=== PATIENT | male | born 1950 | race Caucasian/White ===

== ENCOUNTER 2018-05-05 19:45 | Emergency (ER) | payer MEDICARE ==
[2018-05-05 20:17] LABS: #Eosinphils 0.5 thou/uL (0.0-0.7); #Lymphocytes 1.5 thou/uL (1.20-3.40); #Monocytes 0.6 thou/uL (0.11-0.59); #Neutrophils 4.2 thou/uL (1.40-6.50); %Basophils 0.5 % (0.0-1.0); %Eosinophils 7.4 % (0.0-10.0); %Lymphocytes 21.8 % (21.0-51.0); %Monocytes 8.9 % (0.0-10.0); %Neutrophils 61.3 % (42.0-75.0); Hemoglobin 12.1 g/dL (14.0-18.0); Mean Corpuscular Hemoglobin 34.1 pg (27.0-31.0); Mean Corpuscular Volume 94.7 fl (80.0-94.0); Mean Platelet Volume 5.4 fL (7.4-10.4); Platelet Count 337 thou/uL (130-400); RBC Distribution Width 12.4 % (11.5-14.5); Red Blood Cell (RBC) Count 3.56 mill/uL (4.70-6.10); White Blood Cell (WBC) Count 6.8 thou/uL (4.8-10.8)
[2018-05-05 20:37] LABS: ALT (SGPT) 9 U/L (8-55); AST (SGOT) 15 U/L (5-34); Albumin 4.3 g/dL (3.4-4.8); Alkaline Phosphatase 82 U/L (40-150); Anion Gap 13 mmol/L (10-20); BUN (Urea Nitrogen) 10 mg/dL (8.4-25.7); Bilirubin, Total 0.4 mg/dL (0.2-1.2); CRP (Inflammatory) 0.74 mg/dL (= or < 0.5); Calc. Creatinine Clearance 0 mL/min (70-130); Calcium 10.1 mg/dL (7.8-10.44); Carbon Dioxide 24 mmol/L (23-31); Chloride 100 mmol/L (98-107); Estimated GFR-MDRD 63; Globulin 2.8 g/dL (2.4-3.5); Glucose 97 mg/dL (80-115); Potassium 3.9 mmol/L (3.5-5.1); Protein, Total 7.1 g/dL (5.8-8.1); Sodium 133 mmol/L (136-145)
--- NOTE | 2018-05-05 21:37 | RAD ---
LEFT KNEE 05/05/18 Four views. HISTORY: Knee pain. Patient has a left BK amputation. 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 No focal lytic or destructive lesion. No evidence of fracture. There is abnormal thickening of the prepatellar soft tissues which could represent edema or infection . IMPRESSION: 1. Abnormal mottled density of the bones which may represent disuse osteoporosis, although an in filtrative process cannot be excluded. There is no evidence of focal lytic or destructive process. 2. Abnormal thickening of the prepatellar soft tissues. Recommend clinical correlation. POS: [facility]
== END 2018-05-05 22:05 | disposition home or self-care (01) ==
LOC: ERS 19:45
DX: L03.116 Cellulitis of left lower limb (principal); K21.9 Gastro-esophageal reflux disease without esophagitis; I10 Essential (primary) hypertension; Z86.73 Personal history of transient ischemic attack (TIA), and cerebral infarction without residual deficits; F17.210 Nicotine dependence, cigarettes, uncomplicated; Z79.899 Other long term (current) drug therapy; Z79.82 Long term (current) use of aspirin
CPT/HCPCS: 36415; 80053; 85025; 85652; 86140

== ENCOUNTER 2020-04-20 19:56 | Emergency (ER) | payer MEDICARE ==
--- NOTE | 2020-04-20 21:23 | RAD ---
2 views left hip: 04/20/2020 COMPARISON: None HISTORY: Hip, back, and flank pain FINDINGS: No fracture or dislocation. No radiopaque foreign body or subcutaneous gas. IMPRESSION: No acute findings.
--- NOTE | 2020-04-20 21:25 | RAD ---
3 views lumbar spine: 04/20/2020 COMPARISON: None HISTORY: Pain FINDINGS: There is extensive atherosclerotic calcification of the abdominal aorta and the arterial st ructures of the pelvis. A nonspecific 1.1 cm calcification overlies the mid right abdomen, likely on the basis of a right intrarenal stone. Lumbar pedicles appear intact on frontal imaging. Multilevel lower lumbar spine facet hypertrophy not ed. No acute fracture is evident. No anterolisthesis or retrolisthesis. Lateral imaging is slightly limited on the basis of rotation and obliquity. IMPRESSION: No acute osseous abnormality. Incidental findings as above.
[2020-04-20] MEDS ORDERED: Cyclobenzaprine 10 MG TAB ONE (21:37)
[2020-04-20] MEDS ORDERED: Lidocaine 4% Cream 5 GM TUBE w/ Tegaderm ONE (21:37)
[2020-04-20] MEDS ORDERED: Lidocaine 5% Patch TD SCH (21:45)
[2020-04-20 22:14] LABS: Bilirubin Negative (Negative); Blood, Urine Negative (Negative); Clarity Clear (Clear); Glucose, Urine (Dipstick) Normal (Negative); Leukocyte Negative Leu/uL (Negative); Nitrite Negative (Negative); Protein, Urine (Dipstick) Negative (Neg-Trace); Urobilinogen Normal mg/dL (Less than 2)
== END 2020-04-20 22:21 | disposition home or self-care (01) ==
LOC: ERS 19:56
DX: M25.552 Pain in left hip (principal); J44.9 Chronic obstructive pulmonary disease, unspecified; I10 Essential (primary) hypertension; F17.210 Nicotine dependence, cigarettes, uncomplicated; Z79.899 Other long term (current) drug therapy; Z86.73 Personal history of transient ischemic attack (TIA), and cerebral infarction without residual deficits; Z79.82 Long term (current) use of aspirin; Z89.512 Acquired absence of left leg below knee
CPT/HCPCS: 72100; 81003

== ENCOUNTER 2020-07-17 16:31 | Emergency (ER) | payer MEDICARE ==
[2020-07-17 17:28] LABS: #Eosinphils 0.1 thou/uL (0.0-0.7); #Lymphocytes 1.3 thou/uL (1.20-3.40); #Monocytes 0.4 thou/uL (0.11-0.59); #Neutrophils 5.2 thou/uL (1.40-6.50); %Basophils 0.4 % (0.0-1.0); %Eosinophils 0.9 % (0.0-10.0); %Lymphocytes 18.3 % (21.0-51.0); %Monocytes 5.2 % (0.0-10.0); %Neutrophils 75.1 % (42.0-75.0); Hemoglobin 10.7 g/dL (14.0-18.0); Mean Corpuscular HGB CONC 33.9 g/dL (32.0-36.0); Mean Corpuscular Hemoglobin 31.1 pg (27.0-31.0); Mean Corpuscular Volume 91.8 fL (78.0-98.0); Mean Platelet Volume 6.4 fL (7.4-10.4); Platelet Count 442 thou/uL (130-400); RBC Distribution Width 13.4 % (11.5-14.5); Red Blood Cell (RBC) Count 3.44 mill/uL (4.70-6.10); White Blood Cell (WBC) Count 6.9 thou/uL (4.8-10.8)
[2020-07-17 17:48] LABS: Anion Gap 15 mmol/L (10-20); BUN (Urea Nitrogen) 10 mg/dL (8.4-25.7); Calc. Creatinine Clearance 0 mL/min (70-130); Carbon Dioxide 22 mmol/L (23-31); Chloride 104 mmol/L (98-107); Estimated GFR-MDRD 63; Potassium 3.8 mmol/L (3.5-5.1); Sodium 137 mmol/L (136-145)
[2020-07-17 17:49] LABS: ALT (SGPT) 35 U/L (8-55); AST (SGOT) 32 U/L (5-34); Albumin 4.3 g/dL (3.4-4.8); Alkaline Phosphatase 155 U/L (40-110); Bilirubin, Total 0.2 mg/dL (0.2-1.2); Calcium 9.6 mg/dL (7.8-10.44); Glucose 146 mg/dL (83-110); Protein, Total 7.3 g/dL (5.8-8.1)
--- NOTE | 2020-07-17 18:21 | RAD ---
EXAM: Single view of the chest HISTORY: Dyspnea and COPD COMPARISON: 05/24/2020 FINDINGS: Single view of the chest shows a normal sized cardiomediastinal silhouette. Atheroscleroti c calcifications are seen in the aorta. There is no evidence of consolidation, mass, or pleural effusion. Degenerative changes are seen in the spine. IMPRESSION: No evidence of acute cardiopulmonary disease
[2020-07-17] MEDS ORDERED: Albuterol 200 PUFF (6.7GM INHALER) ONE (19:09)
--- NOTE | 2020-07-22 15:41 | EKG ---
Test Reason : Blood Pressure : / mmHG Vent. Rate : 083 BPM Atrial Rate : 083 BPM P-R Int : 142 ms QRS Dur : 090 ms QT Int : 374 ms P-R-T Axes : 087 051 061 degrees QTc Int : 439 ms Normal sinus rhythm Normal ECG Confirmed by ARMANDO RILEY DO ([id number]), map editor EKLLI GARCIAS ([id number]) on 07/22/2020 3:41:23 PM Referred By: Confirmed By:ARMANDO RILEY DO
== END 2020-07-17 19:50 | disposition home or self-care (01) ==
LOC: ERS 16:31
DX: J44.9 Chronic obstructive pulmonary disease, unspecified (principal); I10 Essential (primary) hypertension; K21.9 Gastro-esophageal reflux disease without esophagitis; F17.210 Nicotine dependence, cigarettes, uncomplicated; Z86.73 Personal history of transient ischemic attack (TIA), and cerebral infarction without residual deficits; Z79.82 Long term (current) use of aspirin; Z79.899 Other long term (current) drug therapy
CPT/HCPCS: 36415; 71045; 80053; 83605; 83880; 84484; 85025; 93005

== ENCOUNTER 2021-03-14 18:27 | Emergency (ER) | payer MEDICARE ==
[2021-03-14 19:19] LABS: #Lymphocytes 1.2 thou/uL (1.20-3.40); #Monocytes 0.4 thou/uL (0.11-0.59); %Basophils 0.4 % (0.0-1.0); %Eosinophils 0.7 % (0.0-10.0); %Lymphocytes 20.8 % (21.0-51.0); %Monocytes 7.8 % (0.0-10.0); %Neutrophils 70.3 % (42.0-75.0); Hemoglobin 11.4 g/dL (14.0-18.0); Mean Corpuscular HGB CONC 34.5 g/dL (32.0-36.0); Mean Corpuscular Hemoglobin 31.8 pg (27.0-31.0); Mean Corpuscular Volume 92.4 fL (78.0-98.0); Mean Platelet Volume 6.7 fL (7.4-10.4); Platelet Count 332 thou/uL (130-400); RBC Distribution Width 13.3 % (11.5-14.5); Red Blood Cell (RBC) Count 3.57 mill/uL (4.70-6.10); White Blood Cell (WBC) Count 5.6 thou/uL (4.8-10.8)
[2021-03-14 19:41] LABS: ALT (SGPT) 12 U/L (8-55); AST (SGOT) 22 U/L (5-34); Albumin 4.3 g/dL (3.4-4.8); Alkaline Phosphatase 119 U/L (40-110); Anion Gap 15 mmol/L (10-20); BUN (Urea Nitrogen) 9 mg/dL (8.4-25.7); Bilirubin, Total 0.4 mg/dL (0.2-1.2); CK (CPK) 114 U/L (30-200); Calc. Creatinine Clearance 0 mL/min (70-130); Calcium 10.2 mg/dL (7.8-10.44); Carbon Dioxide 28 mmol/L (23-31); Chloride 101 mmol/L (98-107); Globulin 3.2 g/dL (2.4-3.5); Glucose 98 mg/dL (83-110); Potassium 3.8 mmol/L (3.5-5.1); Protein, Total 7.5 g/dL (5.8-8.1); Sodium 140 mmol/L (136-145)
[2021-03-14 21:04] LABS: Bilirubin Negative (Negative); Blood, Urine Negative (Negative); Clarity Clear (Clear); Glucose, Urine (Dipstick) Normal (Negative); Ketone, Urine Negative (Negative); Leukocyte Negative Leu/uL (Negative); Nitrite Negative (Negative); Protein, Urine (Dipstick) 10 mg/dL (Neg-Trace); Urobilinogen Normal mg/dL (Less than 2)
== END 2021-03-14 21:30 | disposition home or self-care (01) ==
LOC: ERS 18:27
DX: R53.1 Weakness (principal); R53.81 Other malaise; D64.9 Anemia, unspecified; I10 Essential (primary) hypertension; K21.9 Gastro-esophageal reflux disease without esophagitis; J43.9 Emphysema, unspecified; F17.210 Nicotine dependence, cigarettes, uncomplicated; Z86.73 Personal history of transient ischemic attack (TIA), and cerebral infarction without residual deficits
CPT/HCPCS: 36415; 51701; 71045; 80053; 81003; 82550; 84484; 85025; 93005

== ENCOUNTER 2021-08-29 21:39 | Inpatient (IN) | payer MEDICARE ==
[2021-08-29 22:03] LABS: Actual Bicarbonate (HCO3a) 17.7 mEq/L (22-28); Analyzer IN Cardio ER; Base Excess (BEa) -5.4 mEq/L (-2.0 to +3.0); CO2 Tension 27.4 mmHg (35.0-45.0); Calcium, Ionized (arterial) 1.15 mmol/L (1.12-1.30); Carboxyhemoglobin (COHb) 0.3 gm% (0.0-3.0); Hemoglobin (Hb) 11.9 g/dL (14.0-18.0); Potassium - ABG Lab 3.04 mmol/L (3.70-5.30); pH, Arterial 7.43 (7.35-7.45)
[2021-08-29 22:08] LABS: O2 Tension (PaO2), arterial 57.7 mmHg (> 70.0); Puncture Site RBR
[2021-08-29 22:25] LABS: #Lymphocytes 0.5 thou/uL (1.20-3.40); #Monocytes 0.4 thou/uL (0.11-0.59); #Neutrophils 6.8 thou/uL (1.40-6.50); %Basophils 0.4 % (0.0-1.0); %Eosinophils 0.4 % (0.0-10.0); %Lymphocytes 6.8 % (21.0-51.0); %Monocytes 4.8 % (0.0-10.0); %Neutrophils 87.5 % (42.0-75.0); Hemoglobin 11.7 g/dL (14.0-18.0); Mean Corpuscular HGB CONC 33.6 g/dL (32.0-36.0); Mean Corpuscular Hemoglobin 29.9 pg (27.0-31.0); Mean Corpuscular Volume 88.8 fL (78.0-98.0); Mean Platelet Volume 7.3 fL (7.4-10.4); Platelet Count 253 thou/uL (130-400); RBC Distribution Width 13.9 % (11.5-14.5); Red Blood Cell (RBC) Count 3.93 mill/uL (4.70-6.10); White Blood Cell (WBC) Count 7.8 thou/uL (4.8-10.8)
[2021-08-29 22:44] LABS: SARS-CoV-2 NAA Rapid Test DETECTED (NotDetected)
[2021-08-29 22:47] LABS: ALT (SGPT) 29 U/L (8-55); AST (SGOT) 63 U/L (5-34); Albumin 3.4 g/dL (3.4-4.8); Alkaline Phosphatase 145 U/L (40-110); Anion Gap 15 mmol/L (10-20); BUN (Urea Nitrogen) 24 mg/dL (8.4-25.7); Bilirubin, Total 0.8 mg/dL (0.2-1.2); Calc. Creatinine Clearance 0 mL/min (70-130); Calcium 8.5 mg/dL (7.8-10.44); Carbon Dioxide 19 mmol/L (23-31); Chloride 110 mmol/L (98-107); Globulin 3.1 g/dL (2.4-3.5); Glucose 99 mg/dL (83-110); Protein, Total 6.5 g/dL (5.8-8.1); Sodium 141 mmol/L (136-145)
[2021-08-29] MEDS ORDERED: Aspirin 81 mg Enteric Coated Tablet ONE (23:13)
[2021-08-29] MEDS ORDERED: Dexamethasone 10 MG/ML VIAL ONE (23:13)
[2021-08-29 23:22] LABS: CKMB 7.4 ng/mL (0-6.6); Potassium 2.9 mmol/L (3.5-5.1)
[2021-08-30 00:39] LABS: Bacteria/HPF None Seen HPF (None Seen); Bilirubin Negative (Negative); Blood, Urine 1+ (Negative); Clarity Clear (Clear); Glucose, Urine (Dipstick) Normal (Negative); Ketone, Urine Negative (Negative); Leukocyte Negative Leu/uL (Negative); Nitrite Negative (Negative); Protein, Urine (Dipstick) 70 mg/dL (Neg-Trace); Specific Gravity, Urine 1.019 (1.002-1.036); Squamous Epithelial None Seen HPF (0-3); WBC/HPF 0-3 HPF (0-3); pH, Urine 5.5 (5.0-9.0)
[2021-08-30] MEDS ORDERED: Electrolyte Replacement Protocol FS PRN (04:15)
[2021-08-30] MEDS: Potassium Chloride 40 MEQ in Premix Bag 1 BAG IVPB SCH ×2 (05:22→09:10)
[2021-08-30 06:05] LABS: #Basophils 0.1 thou/uL (0.0-0.2); #Lymphocytes 0.3 thou/uL (1.20-3.40); #Monocytes 0.2 thou/uL (0.11-0.59); #Neutrophils 6.8 thou/uL (1.40-6.50); %Basophils 0.8 % (0.0-1.0); %Eosinophils 0.2 % (0.0-10.0); %Lymphocytes 4.6 % (21.0-51.0); %Monocytes 2.8 % (0.0-10.0); %Neutrophils 91.8 % (42.0-75.0); Hemoglobin 10.4 g/dL (14.0-18.0); Mean Corpuscular Hemoglobin 29.8 pg (27.0-31.0); Mean Corpuscular Volume 90.2 fL (78.0-98.0); Mean Platelet Volume 7.1 fL (7.4-10.4); Platelet Count 212 thou/uL (130-400); White Blood Cell (WBC) Count 7.4 thou/uL (4.8-10.8)
[2021-08-30 06:29] LABS: Anion Gap 14 mmol/L (10-20); BUN (Urea Nitrogen) 22 mg/dL (8.4-25.7); Calc. Creatinine Clearance 41 mL/min (70-130); Calcium 8.3 mg/dL (7.8-10.44); Carbon Dioxide 21 mmol/L (23-31); Chloride 111 mmol/L (98-107); Glucose 123 mg/dL (83-110); Potassium 3.4 mmol/L (3.5-5.1); Sodium 143 mmol/L (136-145)
[2021-08-30] MEDS ORDERED: Acetaminophen 325 MG TAB PO PRN (08:23)
[2021-08-30] MEDS ORDERED: Sodium Chloride 0.9% 1,000 ML IV SCH (08:30)
[2021-08-30] MEDS ORDERED: Ondansetron PF 4 MG/2 ML Vial IVP PRN (08:45)
[2021-08-30] MEDS: busPIRone HCl 10 MG TAB PO SCH ×2 (09:02→20:51)
[2021-08-30] MEDS: Pantoprazole 40 MG VIAL IVP SCH (09:02)
[2021-08-30] MEDS: Zinc Sulfate 220 MG CAP PO SCH (09:02)
[2021-08-30] MEDS: Losartan 25 MG TAB PO SCH (09:02)
[2021-08-30] MEDS: PARoxetine 20 MG TAB PO SCH (09:02)
[2021-08-30] MEDS: Enoxaparin Sodium 80 MG/0.8 ML SYRINGE SC SCH ×2 (09:02→20:51)
[2021-08-30] MEDS: BARICITINIB 2 MG TAB PO SCH (09:02)
[2021-08-30] MEDS: Colchicine 0.6 MG TAB PO SCH (09:02)
[2021-08-30] MEDS: Azithromycin 500 MG in Sodium Chloride 0.9% 250 ML 250 ML IVPB SCH (09:03)
[2021-08-30] MEDS ORDERED: Polyethylene Glycol 3350 17 GM Packet PO SCH (10:15)
[2021-08-30] MEDS: Nicotine 7 MG PATCH TOP SCH (11:01)
[2021-08-30 15:23] VITALS: BP 142/59
[2021-08-30] MEDS ORDERED: Albuterol Sulfate 2.5 mg/3 ml Neb IPPB PRN (16:27)
[2021-08-30] MEDS: Mometasone 200 MCG/Formoterol 5 MCG 120 PUFF INHALER INH SCH (18:35)
[2021-08-30] MEDS: Atorvastatin Calcium 10 MG TAB PO SCH (20:51)
[2021-08-31 03:56] LABS: Hemoglobin A1c 5.7 % (4.0-6.0)
[2021-08-31 04:01] LABS: Anion Gap 13 mmol/L (10-20); BUN (Urea Nitrogen) 23 mg/dL (8.4-25.7); CRP (Inflammatory) 16.29 mg/dL (= or < 0.5); Calc. Creatinine Clearance 58 mL/min (70-130); Calcium 8.1 mg/dL (7.8-10.44); Carbon Dioxide 18 mmol/L (23-31); Chloride 115 mmol/L (98-107); Glucose 111 mg/dL (83-110); Potassium 3.4 mmol/L (3.5-5.1); Sodium 143 mmol/L (136-145)
[2021-08-31 04:04] LABS: #Lymphocytes 0.5 thou/uL (1.20-3.40); #Monocytes 0.4 thou/uL (0.11-0.59); #Neutrophils 5.5 thou/uL (1.40-6.50); %Basophils 0.5 % (0.0-1.0); %Eosinophils 0.3 % (0.0-10.0); %Lymphocytes 7.1 % (21.0-51.0); %Monocytes 6.3 % (0.0-10.0); %Neutrophils 85.8 % (42.0-75.0); Hemoglobin 9.8 g/dL (14.0-18.0); Mean Corpuscular HGB CONC 34.5 g/dL (32.0-36.0); Mean Corpuscular Hemoglobin 30.8 pg (27.0-31.0); Mean Corpuscular Volume 89.4 fL (78.0-98.0); Mean Platelet Volume 7.5 fL (7.4-10.4); Platelet Count 223 thou/uL (130-400); RBC Distribution Width 13.9 % (11.5-14.5); Red Blood Cell (RBC) Count 3.19 mill/uL (4.70-6.10); White Blood Cell (WBC) Count 6.5 thou/uL (4.8-10.8)
[2021-08-31] MEDS ORDERED: Potassium Chloride 20 MEQ TAB PO SCH (06:30)
[2021-08-31] MEDS ORDERED: Dexamethasone 4 mg/ml Vial SLOW IVP SCH ×2 (09:00→21:00)
[2021-08-31] MEDS: busPIRone HCl 10 MG TAB PO SCH ×2 (09:42→20:34)
[2021-08-31] MEDS: Colchicine 0.6 MG TAB PO SCH (09:43)
[2021-08-31] MEDS: Zinc Sulfate 220 MG CAP PO SCH (09:43)
[2021-08-31] MEDS: PARoxetine 20 MG TAB PO SCH (09:43)
[2021-08-31] MEDS: BARICITINIB 2 MG TAB PO SCH (09:43)
[2021-08-31] MEDS: Losartan 25 MG TAB PO SCH (09:43)
[2021-08-31] MEDS: Enoxaparin Sodium 80 MG/0.8 ML SYRINGE SC SCH ×2 (09:43→20:34)
[2021-08-31] MEDS: Polyethylene Glycol 3350 17 GM Packet PO SCH (09:43)
[2021-08-31] MEDS: Aspirin 325 mg Enteric Coated Tablet PO SCH (09:43)
[2021-08-31] MEDS: Mometasone 200 MCG/Formoterol 5 MCG 120 PUFF INHALER INH SCH ×2 (09:44→20:01)
[2021-08-31] MEDS: NS 0.9% w/ 20 MEQ KCL 1,000 ML IV SCH ×2 (09:44→21:24)
[2021-08-31] MEDS: Azithromycin 500 MG in Sodium Chloride 0.9% 250 ML 250 ML IVPB SCH (09:44)
[2021-08-31] MEDS: Pantoprazole 40 MG VIAL IVP SCH (10:30)
[2021-08-31] MEDS: Nicotine 7 MG PATCH TOP SCH (10:30)
[2021-08-31] MEDS: guaiFENesin ER 600 MG TAB PO SCH (20:33)
[2021-08-31] MEDS: Dexamethasone 10 MG/ML VIAL IVPB SCH (20:34)
[2021-08-31] MEDS: Atorvastatin Calcium 10 MG TAB PO SCH (20:34)
[2021-08-31] MEDS ORDERED: Refresh Lacri-lube Opth Oint 7 GM TUBE FS SCH (21:00)
[2021-09-01 04:03] LABS: #Lymphocytes 0.4 thou/uL (1.20-3.40); #Monocytes 0.3 thou/uL (0.11-0.59); %Basophils 0.1 % (0.0-1.0); %Eosinophils 0.3 % (0.0-10.0); %Lymphocytes 3.8 % (21.0-51.0); %Monocytes 2.9 % (0.0-10.0); Hemoglobin 10.4 g/dL (14.0-18.0); Mean Corpuscular HGB CONC 33.6 g/dL (32.0-36.0); Mean Corpuscular Hemoglobin 30.2 pg (27.0-31.0); Mean Corpuscular Volume 89.9 fL (78.0-98.0); Mean Platelet Volume 7.4 fL (7.4-10.4); Platelet Count 228 thou/uL (130-400); Red Blood Cell (RBC) Count 3.44 mill/uL (4.70-6.10); White Blood Cell (WBC) Count 9.7 thou/uL (4.8-10.8)
[2021-09-01 04:30] LABS: BUN (Urea Nitrogen) 23 mg/dL (8.4-25.7); CRP (Inflammatory) 9.63 mg/dL (= or < 0.5); Calc. Creatinine Clearance 67 mL/min (70-130); Calcium 8.6 mg/dL (7.8-10.44); Carbon Dioxide 18 mmol/L (23-31); Cardiac Risk 4.9 (Less than 4.5); Chloride 116 mmol/L (98-107); Cholesterol 132 mg/dl (< 200 Desired); Glucose 102 mg/dL (83-110); HDL Cholesterol 27 mg/dL (>60 Neg Risk); LDL Cholesterol, Calculated 79 mg/dL; Potassium 3.8 mmol/L (3.5-5.1); Sodium 144 mmol/L (136-145); Triglycerides 130 mg/dL (Less than 150)
[2021-09-01 04:35] LABS: Anion Gap 14 mmol/L (10-20)
[2021-09-01] MEDS: Mometasone 200 MCG/Formoterol 5 MCG 120 PUFF INHALER INH SCH ×2 (11:35→20:16)
[2021-09-01] MEDS: Polyethylene Glycol 3350 17 GM Packet PO SCH (11:39)
[2021-09-01] MEDS: NS 0.9% w/ 20 MEQ KCL 1,000 ML IV SCH (11:39)
[2021-09-01] MEDS: BARICITINIB 2 MG TAB PO SCH (11:40)
[2021-09-01] MEDS: busPIRone HCl 10 MG TAB PO SCH ×2 (11:40→20:14)
[2021-09-01] MEDS: PARoxetine 20 MG TAB PO SCH (11:40)
[2021-09-01] MEDS: Colchicine 0.6 MG TAB PO SCH (11:41)
[2021-09-01] MEDS: Dexamethasone 10 MG/ML VIAL IVPB SCH ×2 (11:41→20:15)
[2021-09-01] MEDS: guaiFENesin ER 600 MG TAB PO SCH ×2 (11:41→20:14)
[2021-09-01] MEDS: Losartan 25 MG TAB PO SCH (11:42)
[2021-09-01] MEDS: Zinc Sulfate 220 MG CAP PO SCH (11:42)
[2021-09-01] MEDS: Enoxaparin Sodium 80 MG/0.8 ML SYRINGE SC SCH ×2 (11:43→20:14)
[2021-09-01] MEDS: Aspirin 325 mg Enteric Coated Tablet PO SCH (11:43)
[2021-09-01] MEDS: Azithromycin 500 MG in Sodium Chloride 0.9% 250 ML 250 ML IVPB SCH (11:44)
[2021-09-01] MEDS: Nicotine 7 MG PATCH TOP SCH (11:44)
[2021-09-01] MEDS: Atorvastatin Calcium 10 MG TAB PO SCH (20:14)
[2021-09-01] MEDS: Tamsulosin HCl 0.4 MG CAP PO SCH (20:14)
[2021-09-02] MEDS: NS 0.9% w/ 20 MEQ KCL 1,000 ML IV SCH ×2 (01:19→16:25)
[2021-09-02 04:12] LABS: #Lymphocytes 0.4 thou/uL (1.20-3.40); #Monocytes 0.4 thou/uL (0.11-0.59); #Neutrophils 9.1 thou/uL (1.40-6.50); %Eosinophils 0.2 % (0.0-10.0); %Lymphocytes 4.4 % (21.0-51.0); %Monocytes 4.4 % (0.0-10.0); Hemoglobin 10.1 g/dL (14.0-18.0); Mean Corpuscular HGB CONC 32.7 g/dL (32.0-36.0); Mean Corpuscular Hemoglobin 29.2 pg (27.0-31.0); Mean Corpuscular Volume 89.3 fL (78.0-98.0); Mean Platelet Volume 7.8 fL (7.4-10.4); Platelet Count 217 thou/uL (130-400); RBC Distribution Width 13.9 % (11.5-14.5); Red Blood Cell (RBC) Count 3.48 mill/uL (4.70-6.10)
[2021-09-02 04:35] LABS: Anion Gap 15 mmol/L (10-20); BUN (Urea Nitrogen) 25 mg/dL (8.4-25.7); CRP (Inflammatory) 5.62 mg/dL (= or < 0.5); Calc. Creatinine Clearance 84 mL/min (70-130); Calcium 8.4 mg/dL (7.8-10.44); Carbon Dioxide 18 mmol/L (23-31); Chloride 114 mmol/L (98-107); Glucose 102 mg/dL (83-110); Potassium 4.5 mmol/L (3.5-5.1); Sodium 142 mmol/L (136-145)
[2021-09-02] MEDS: Mometasone 200 MCG/Formoterol 5 MCG 120 PUFF INHALER INH SCH ×2 (06:46→20:24)
[2021-09-02 09:51] LABS: ALT (SGPT) 33 U/L (8-55); AST (SGOT) 54 U/L (5-34); Albumin 3.1 g/dL (3.4-4.8); Alkaline Phosphatase 163 U/L (40-110); Bilirubin, Direct 0.4 mg/dL (0.1-0.3); Bilirubin, Total 0.7 mg/dL (0.2-1.2); Protein, Total 6.6 g/dL (5.8-8.1)
[2021-09-02] MEDS: Aspirin 325 mg Enteric Coated Tablet PO SCH (10:14)
[2021-09-02] MEDS: PARoxetine 20 MG TAB PO SCH (10:14)
[2021-09-02] MEDS: Enoxaparin Sodium 80 MG/0.8 ML SYRINGE SC SCH ×2 (10:14→20:38)
[2021-09-02] MEDS: BARICITINIB 2 MG TAB PO SCH (10:14)
[2021-09-02] MEDS: Tamsulosin HCl 0.4 MG CAP PO SCH ×2 (10:15→20:39)
[2021-09-02] MEDS: Zinc Sulfate 220 MG CAP PO SCH (10:15)
[2021-09-02] MEDS: Polyethylene Glycol 3350 17 GM Packet PO SCH (10:15)
[2021-09-02] MEDS: busPIRone HCl 10 MG TAB PO SCH ×2 (10:15→20:38)
[2021-09-02] MEDS: Finasteride 5 MG TAB PO SCH (10:15)
[2021-09-02] MEDS: Losartan 25 MG TAB PO SCH (10:15)
[2021-09-02] MEDS: Nicotine 7 MG PATCH TOP SCH (10:15)
[2021-09-02] MEDS: Colchicine 0.6 MG TAB PO SCH (10:15)
[2021-09-02] MEDS: Azithromycin 500 MG in Sodium Chloride 0.9% 250 ML 250 ML IVPB SCH (10:16)
[2021-09-02] MEDS: Dexamethasone 10 MG/ML VIAL IVPB SCH ×2 (10:16→20:39)
[2021-09-02] MEDS: guaiFENesin ER 600 MG TAB PO SCH ×2 (10:16→20:39)
[2021-09-02] MEDS: Atorvastatin Calcium 10 MG TAB PO SCH (20:39)
[2021-09-02] MEDS: Lorazepam 2 MG/ML VIAL SLOW IVP PRN (21:19)
[2021-09-03] MEDS: Lorazepam 2 MG/ML VIAL SLOW IVP PRN ×4 (00:40→23:21)
[2021-09-03 04:14] LABS: #Lymphocytes 0.3 thou/uL (1.20-3.40); #Monocytes 0.2 thou/uL (0.11-0.59); %Basophils 0.1 % (0.0-1.0); %Eosinophils 0.1 % (0.0-10.0); %Lymphocytes 2.4 % (21.0-51.0); %Monocytes 1.9 % (0.0-10.0); %Neutrophils 95.6 % (42.0-75.0); Hemoglobin 10.5 g/dL (14.0-18.0); Mean Corpuscular HGB CONC 33.7 g/dL (32.0-36.0); Mean Corpuscular Hemoglobin 30.2 pg (27.0-31.0); Mean Corpuscular Volume 89.7 fL (78.0-98.0); Platelet Count 209 thou/uL (130-400); RBC Distribution Width 13.9 % (11.5-14.5); Red Blood Cell (RBC) Count 3.46 mill/uL (4.70-6.10); White Blood Cell (WBC) Count 11.5 thou/uL (4.8-10.8)
[2021-09-03 04:29] LABS: Anion Gap 13 mmol/L (10-20); BUN (Urea Nitrogen) 22 mg/dL (8.4-25.7); CRP (Inflammatory) 8.28 mg/dL (= or < 0.5); Calc. Creatinine Clearance 76 mL/min (70-130); Calcium 8.4 mg/dL (7.8-10.44); Carbon Dioxide 18 mmol/L (23-31); Chloride 116 mmol/L (98-107); Glucose 82 mg/dL (83-110); Sodium 143 mmol/L (136-145)
[2021-09-03] MEDS: NS 0.9% w/ 20 MEQ KCL 1,000 ML IV SCH ×2 (05:08→18:47)
[2021-09-03] MEDS: Mometasone 200 MCG/Formoterol 5 MCG 120 PUFF INHALER INH SCH ×2 (06:11→18:48)
[2021-09-03] MEDS: Azithromycin 500 MG in Sodium Chloride 0.9% 250 ML 250 ML IVPB SCH (09:58)
[2021-09-03] MEDS: Finasteride 5 MG TAB PO SCH (09:59)
[2021-09-03] MEDS: busPIRone HCl 10 MG TAB PO SCH ×2 (09:59→20:08)
[2021-09-03] MEDS: BARICITINIB 2 MG TAB PO SCH (09:59)
[2021-09-03] MEDS: Aspirin 325 mg Enteric Coated Tablet PO SCH (09:59)
[2021-09-03] MEDS: Colchicine 0.6 MG TAB PO SCH (09:59)
[2021-09-03] MEDS: Tamsulosin HCl 0.4 MG CAP PO SCH ×2 (10:00→20:08)
[2021-09-03] MEDS: PARoxetine 20 MG TAB PO SCH (10:00)
[2021-09-03] MEDS: Polyethylene Glycol 3350 17 GM Packet PO SCH (10:00)
[2021-09-03] MEDS: Zinc Sulfate 220 MG CAP PO SCH (10:00)
[2021-09-03] MEDS: Losartan 25 MG TAB PO SCH (10:00)
[2021-09-03] MEDS: guaiFENesin ER 600 MG TAB PO SCH ×2 (10:00→20:08)
[2021-09-03] MEDS: Nicotine 7 MG PATCH TOP SCH (11:12)
[2021-09-03] MEDS: Dexamethasone 10 MG/ML VIAL IVPB SCH ×2 (11:35→20:08)
[2021-09-03] MEDS: Enoxaparin Sodium 80 MG/0.8 ML SYRINGE SC SCH ×2 (11:35→20:08)
[2021-09-03] MEDS: Atorvastatin Calcium 10 MG TAB PO SCH (20:08)
[2021-09-04] MEDS: Mometasone 200 MCG/Formoterol 5 MCG 120 PUFF INHALER INH SCH ×2 (06:27→19:08)
[2021-09-04 06:51] LABS: Hemoglobin 9.8 g/dL (14.0-18.0); Mean Corpuscular HGB CONC 34.2 g/dL (32.0-36.0); Mean Corpuscular Hemoglobin 30.7 pg (27.0-31.0); Mean Corpuscular Volume 89.8 fL (78.0-98.0); Mean Platelet Volume 8.3 fL (7.4-10.4); Platelet Count 225 thou/uL (130-400); RBC Distribution Width 14.2 % (11.5-14.5); Red Blood Cell (RBC) Count 3.19 mill/uL (4.70-6.10); White Blood Cell (WBC) Count 13.1 thou/uL (4.8-10.8)
[2021-09-04 07:29] LABS: ALT (SGPT) 44 U/L (8-55); AST (SGOT) 63 U/L (5-34); Albumin 3.2 g/dL (3.4-4.8); Alkaline Phosphatase 185 U/L (40-110); Anion Gap 19 mmol/L (10-20); BUN (Urea Nitrogen) 22 mg/dL (8.4-25.7); Band 1 % (5-11); Bilirubin, Total 0.8 mg/dL (0.2-1.2); Calc. Creatinine Clearance 66 mL/min (70-130); Calcium 8.5 mg/dL (7.8-10.44); Carbon Dioxide 15 mmol/L (23-31); Chloride 116 mmol/L (98-107); Globulin 3.1 g/dL (2.4-3.5); Glucose 89 mg/dL (83-110); Lymphocytes 2 % (21-51); MDiff Complete? YES; Metamyelocyte 1 % (0-0); Monocytes 3 % (0-10); Neutrophil 93 % (42-75); Platelet Morphology Comment Appears Adequate; Polychromasia SLIGHT = 2-3 cells (100X) (0-2/hpf); Potassium 4.2 mmol/L (3.5-5.1); Protein, Total 6.3 g/dL (5.8-8.1); Sodium 146 mmol/L (136-145)
[2021-09-04] MEDS: Colchicine 0.6 MG TAB PO SCH (09:40)
[2021-09-04] MEDS: Nicotine 7 MG PATCH TOP SCH (09:40)
[2021-09-04] MEDS: BARICITINIB 2 MG TAB PO SCH (09:40)
[2021-09-04] MEDS: NS 0.9% w/ 20 MEQ KCL 1,000 ML IV SCH (09:40)
[2021-09-04] MEDS: busPIRone HCl 10 MG TAB PO SCH ×2 (09:40→20:40)
[2021-09-04] MEDS: Aspirin 325 mg Enteric Coated Tablet PO SCH (09:40)
[2021-09-04] MEDS: guaiFENesin ER 600 MG TAB PO SCH ×2 (09:41→20:40)
[2021-09-04] MEDS: Losartan 25 MG TAB PO SCH (09:41)
[2021-09-04] MEDS: Finasteride 5 MG TAB PO SCH (09:41)
[2021-09-04] MEDS: Polyethylene Glycol 3350 17 GM Packet PO SCH (09:42)
[2021-09-04] MEDS: PARoxetine 20 MG TAB PO SCH (09:42)
[2021-09-04] MEDS: Tamsulosin HCl 0.4 MG CAP PO SCH ×2 (09:42→20:41)
[2021-09-04] MEDS: Zinc Sulfate 220 MG CAP PO SCH (09:42)
[2021-09-04] MEDS: Azithromycin 500 MG in Sodium Chloride 0.9% 250 ML 250 ML IVPB SCH (10:03)
[2021-09-04] MEDS: Dexamethasone 10 MG/ML VIAL IVPB SCH ×2 (10:04→20:39)
[2021-09-04] MEDS: Enoxaparin Sodium 80 MG/0.8 ML SYRINGE SC SCH ×2 (10:04→20:38)
[2021-09-04] MEDS: Dextrose 5 %-0.45 % NaCl 1,000 ML IV SCH (10:24)
[2021-09-04] MEDS: Atorvastatin Calcium 10 MG TAB PO SCH (20:40)
[2021-09-04] MEDS: Lorazepam 2 MG/ML VIAL SLOW IVP PRN (21:47)
[2021-09-05] MEDS: Dextrose 5 %-0.45 % NaCl 1,000 ML IV SCH ×2 (01:39→12:18)
[2021-09-05 04:12] LABS: #Lymphocytes 0.2 thou/uL (1.20-3.40); #Monocytes 0.2 thou/uL (0.11-0.59); #Neutrophils 10.5 thou/uL (1.40-6.50); %Eosinophils 0.1 % (0.0-10.0); %Lymphocytes 1.9 % (21.0-51.0); %Monocytes 1.5 % (0.0-10.0); %Neutrophils 96.5 % (42.0-75.0); Mean Corpuscular HGB CONC 33.1 g/dL (32.0-36.0); Mean Corpuscular Hemoglobin 29.4 pg (27.0-31.0); Mean Corpuscular Volume 88.7 fL (78.0-98.0); Mean Platelet Volume 8.4 fL (7.4-10.4); Platelet Count 240 thou/uL (130-400); RBC Distribution Width 14.1 % (11.5-14.5); Red Blood Cell (RBC) Count 3.08 mill/uL (4.70-6.10); White Blood Cell (WBC) Count 10.8 thou/uL (4.8-10.8)
[2021-09-05 04:47] LABS: Albumin 2.9 g/dL (3.4-4.8)
[2021-09-05 04:48] LABS: Chloride 116 mmol/L (98-107); Potassium 3.5 mmol/L (3.5-5.1); Sodium 145 mmol/L (136-145)
[2021-09-05 04:49] LABS: Calcium 8.4 mg/dL (7.8-10.44)
[2021-09-05 04:50] LABS: Globulin 2.9 g/dL (2.4-3.5); Glucose 139 mg/dL (83-110); Protein, Total 5.8 g/dL (5.8-8.1)
[2021-09-05 04:51] LABS: Anion Gap 16 mmol/L (10-20); Bilirubin, Total 0.8 mg/dL (0.2-1.2); Carbon Dioxide 17 mmol/L (23-31)
[2021-09-05 04:53] LABS: Alkaline Phosphatase 178 U/L (40-110); CRP (Inflammatory) 8.06 mg/dL (= or < 0.5); Calc. Creatinine Clearance 73 mL/min (70-130)
[2021-09-05 04:54] LABS: BUN (Urea Nitrogen) 20 mg/dL (8.4-25.7)
[2021-09-05 04:55] LABS: AST (SGOT) 49 U/L (5-34)
[2021-09-05 04:56] LABS: ALT (SGPT) 39 U/L (8-55)
[2021-09-05] MEDS: Mometasone 200 MCG/Formoterol 5 MCG 120 PUFF INHALER INH SCH ×2 (05:47→22:15)
[2021-09-05] MEDS: Potassium Chloride 20 MEQ in Premix Bag 1 BAG IVPB SCH ×2 (06:47→10:06)
[2021-09-05] MEDS ORDERED: Potassium Chloride 20 MEQ TAB PO SCH (07:00)
[2021-09-05] MEDS: Nicotine 7 MG PATCH TOP SCH (07:51)
[2021-09-05] MEDS: BARICITINIB 2 MG TAB PO SCH (07:52)
[2021-09-05] MEDS: busPIRone HCl 10 MG TAB PO SCH ×2 (07:52→22:55)
[2021-09-05] MEDS: Aspirin 325 mg Enteric Coated Tablet PO SCH (07:52)
[2021-09-05] MEDS: Finasteride 5 MG TAB PO SCH (07:53)
[2021-09-05] MEDS: Colchicine 0.6 MG TAB PO SCH (07:53)
[2021-09-05] MEDS: Enoxaparin Sodium 80 MG/0.8 ML SYRINGE SC SCH ×2 (10:03→21:24)
[2021-09-05] MEDS: Losartan/Hydrochlorothiazide 100 mg/25 mg Tablet PO SCH (10:04)
[2021-09-05] MEDS: Dexamethasone 10 MG/ML VIAL IVPB SCH ×2 (10:04→21:23)
[2021-09-05] MEDS: guaiFENesin ER 600 MG TAB PO SCH ×2 (10:04→22:55)
[2021-09-05] MEDS: Polyethylene Glycol 3350 17 GM Packet PO SCH (10:04)
[2021-09-05] MEDS: PARoxetine 20 MG TAB PO SCH (10:04)
[2021-09-05] MEDS: Zinc Sulfate 220 MG CAP PO SCH (10:05)
[2021-09-05] MEDS: Tamsulosin HCl 0.4 MG CAP PO SCH ×2 (10:05→22:56)
[2021-09-05] MEDS: Azithromycin 500 MG in Sodium Chloride 0.9% 250 ML 250 ML IVPB SCH (10:06)
[2021-09-05 10:26] LABS: ALT (SGPT) 38 U/L (8-55); AST (SGOT) 44 U/L (5-34); Albumin 2.8 g/dL (3.4-4.8); Alkaline Phosphatase 177 U/L (40-110); Bilirubin, Direct 0.4 mg/dL (0.1-0.3); Bilirubin, Total 0.8 mg/dL (0.2-1.2); Protein, Total 5.7 g/dL (5.8-8.1)
[2021-09-05 10:54] VITALS: BMI 23.1
[2021-09-05] MEDS: Lorazepam 2 MG/ML VIAL SLOW IVP PRN (21:28)
[2021-09-05] MEDS: Atorvastatin Calcium 10 MG TAB PO SCH (22:55)
[2021-09-06] MEDS: Dextrose 5 %-0.45 % NaCl 1,000 ML IV SCH ×2 (02:47→13:28)
[2021-09-06 04:00] LABS: #Lymphocytes 0.2 thou/uL (1.20-3.40); #Monocytes 0.2 thou/uL (0.11-0.59); #Neutrophils 9.3 thou/uL (1.40-6.50); %Eosinophils 0.2 % (0.0-10.0); %Lymphocytes 2.4 % (21.0-51.0); %Neutrophils 95.4 % (42.0-75.0); Hemoglobin 10.3 g/dL (14.0-18.0); Mean Corpuscular HGB CONC 33.8 g/dL (32.0-36.0); Mean Corpuscular Volume 88.8 fL (78.0-98.0); Mean Platelet Volume 8.4 fL (7.4-10.4); Platelet Count 239 thou/uL (130-400); Red Blood Cell (RBC) Count 3.43 mill/uL (4.70-6.10); White Blood Cell (WBC) Count 9.7 thou/uL (4.8-10.8)
[2021-09-06 04:09] LABS: Anion Gap 13 mmol/L (10-20); BUN (Urea Nitrogen) 15 mg/dL (8.4-25.7); Calc. Creatinine Clearance 78 mL/min (70-130); Calcium 8.3 mg/dL (7.8-10.44); Carbon Dioxide 20 mmol/L (23-31); Chloride 111 mmol/L (98-107); Glucose 133 mg/dL (83-110); Potassium 3.9 mmol/L (3.5-5.1); Sodium 140 mmol/L (136-145)
[2021-09-06] MEDS: Mometasone 200 MCG/Formoterol 5 MCG 120 PUFF INHALER INH SCH ×2 (06:43→18:40)
[2021-09-06] MEDS: Azithromycin 500 MG in Sodium Chloride 0.9% 250 ML 250 ML IVPB SCH (09:57)
[2021-09-06] MEDS: Enoxaparin Sodium 80 MG/0.8 ML SYRINGE SC SCH ×2 (09:57→20:33)
[2021-09-06] MEDS: Dexamethasone 10 MG/ML VIAL IVPB SCH ×2 (09:57→20:32)
[2021-09-06] MEDS: Nicotine 7 MG PATCH TOP SCH (10:01)
[2021-09-06] MEDS: Lorazepam 2 MG/ML VIAL SLOW IVP PRN ×3 (10:10→23:58)
[2021-09-06] MEDS: Aspirin 325 mg Enteric Coated Tablet PO SCH (10:26)
[2021-09-06] MEDS: Colchicine 0.6 MG TAB PO SCH (10:26)
[2021-09-06] MEDS: busPIRone HCl 10 MG TAB PO SCH ×2 (10:26→20:32)
[2021-09-06] MEDS: BARICITINIB 2 MG TAB PO SCH (10:26)
[2021-09-06] MEDS: Losartan/Hydrochlorothiazide 100 mg/25 mg Tablet PO SCH (10:27)
[2021-09-06] MEDS: PARoxetine 20 MG TAB PO SCH (10:27)
[2021-09-06] MEDS: Finasteride 5 MG TAB PO SCH (10:27)
[2021-09-06] MEDS: guaiFENesin ER 600 MG TAB PO SCH ×2 (10:27→20:33)
[2021-09-06] MEDS: Polyethylene Glycol 3350 17 GM Packet PO SCH (10:27)
[2021-09-06] MEDS: Zinc Sulfate 220 MG CAP PO SCH (10:28)
[2021-09-06] MEDS: Tamsulosin HCl 0.4 MG CAP PO SCH ×2 (10:28→20:33)
[2021-09-06] MEDS ORDERED: D5W-AA 4.25% with LYTES 1,000 ML IV SCH (13:00)
[2021-09-06] MEDS: Atorvastatin Calcium 10 MG TAB PO SCH (20:32)
[2021-09-07 04:03] LABS: #Lymphocytes 0.2 thou/uL (1.20-3.40); #Monocytes 0.2 thou/uL (0.11-0.59); %Eosinophils 0.1 % (0.0-10.0); %Monocytes 2.9 % (0.0-10.0); Hemoglobin 9.3 g/dL (14.0-18.0); Mean Corpuscular HGB CONC 33.2 g/dL (32.0-36.0); Mean Corpuscular Hemoglobin 29.3 pg (27.0-31.0); Mean Corpuscular Volume 88.3 fL (78.0-98.0); Mean Platelet Volume 8.6 fL (7.4-10.4); Platelet Count 227 thou/uL (130-400); RBC Distribution Width 13.9 % (11.5-14.5); Red Blood Cell (RBC) Count 3.16 mill/uL (4.70-6.10); White Blood Cell (WBC) Count 7.4 thou/uL (4.8-10.8)
[2021-09-07 04:17] LABS: Anion Gap 13 mmol/L (10-20); BUN (Urea Nitrogen) 17 mg/dL (8.4-25.7); CRP (Inflammatory) 6.25 mg/dL (= or < 0.5); Calc. Creatinine Clearance 82 mL/min (70-130); Calcium 8.2 mg/dL (7.8-10.44); Carbon Dioxide 20 mmol/L (23-31); Chloride 109 mmol/L (98-107); Glucose 111 mg/dL (83-110); Potassium 3.7 mmol/L (3.5-5.1); Sodium 138 mmol/L (136-145)
[2021-09-07] MEDS: Mometasone 200 MCG/Formoterol 5 MCG 120 PUFF INHALER INH SCH (07:37)
[2021-09-07] MEDS: Dextrose 5 %-0.45 % NaCl 1,000 ML IV SCH (07:37)
[2021-09-07] MEDS: busPIRone HCl 10 MG TAB PO SCH (07:39)
[2021-09-07] MEDS: Aspirin 325 mg Enteric Coated Tablet PO SCH (07:39)
[2021-09-07] MEDS: BARICITINIB 2 MG TAB PO SCH (07:39)
[2021-09-07] MEDS: Polyethylene Glycol 3350 17 GM Packet PO SCH (07:40)
[2021-09-07] MEDS: PARoxetine 20 MG TAB PO SCH (07:40)
[2021-09-07] MEDS: Colchicine 0.6 MG TAB PO SCH (07:40)
[2021-09-07] MEDS: Tamsulosin HCl 0.4 MG CAP PO SCH (07:40)
[2021-09-07] MEDS: guaiFENesin ER 600 MG TAB PO SCH (07:40)
[2021-09-07] MEDS: Losartan/Hydrochlorothiazide 100 mg/25 mg Tablet PO SCH (07:40)
[2021-09-07] MEDS: Finasteride 5 MG TAB PO SCH (07:40)
[2021-09-07] MEDS: Zinc Sulfate 220 MG CAP PO SCH (07:41)
[2021-09-07] MEDS: Enoxaparin Sodium 80 MG/0.8 ML SYRINGE SC SCH (08:27)
[2021-09-07] MEDS: Dexamethasone 10 MG/ML VIAL IVPB SCH (08:27)
[2021-09-07] MEDS: Nicotine 7 MG PATCH TOP SCH (08:27)
[2021-09-07 08:32] VITALS: TEMP 98
[2021-09-07] MEDS ORDERED: Morphine 4 MG/ML VIAL SLOW IVP PRN (09:39)
[2021-09-07] MEDS ORDERED: Lorazepam 2 MG/ML VIAL SLOW IVP PRN (09:42)
== END 2021-09-07 11:31 | disposition hospice, inpatient (51) | DRG 177 ==
LOC: ERS 21:39 → IMCU/EMU 08-30 00:06
PROVIDERS: ADMIT Specialist; ATTEND Specialist
PROC: 8E0ZXY6 Isolation (ICD-10-PCS; 2021-08-29)
PROC: 5A09557 Assistance with Respiratory Ventilation, Greater than 96 Consecutive Hours, Continuous Positive Airway Pressure (ICD-10-PCS; 2021-08-29)
PROC: 3E0333Z Introduction of Anti-inflammatory into Peripheral Vein, Percutaneous Approach (ICD-10-PCS; principal; 2021-08-30)
PROC: XW0DXM6 Introduction of Baricitinib into Mouth and Pharynx, External Approach, New Technology Group 6 (ICD-10-PCS; 2021-08-30)
PROC: 5A0955A Assistance with Respiratory Ventilation, Greater than 96 Consecutive Hours, High Flow/Velocity Cannula (ICD-10-PCS; 2021-08-30)
DX: U07.1 COVID-19 (principal); Z66 Do not resuscitate; Z51.5 Encounter for palliative care; J12.82 Pneumonia due to coronavirus disease 2019; J96.01 Acute respiratory failure with hypoxia; E44.0 Moderate protein-calorie malnutrition; N17.9 Acute kidney failure, unspecified; R64 Cachexia; E87.0 Hyperosmolality and hypernatremia; F17.210 Nicotine dependence, cigarettes, uncomplicated; G47.00 Insomnia, unspecified; J43.9 Emphysema, unspecified; E87.8 Other disorders of electrolyte and fluid balance, not elsewhere classified; R33.9 Retention of urine, unspecified; Z68.22 Body mass index [BMI] 22.0-22.9, adult; Z86.73 Personal history of transient ischemic attack (TIA), and cerebral infarction without residual deficits; Z89.512 Acquired absence of left leg below knee; Z90.49 Acquired absence of other specified parts of digestive tract; Z95.828 Presence of other vascular implants and grafts; Z79.899 Other long term (current) drug therapy; Z79.82 Long term (current) use of aspirin; Z79.02 Long term (current) use of antithrombotics/antiplatelets; Z78.1 Physical restraint status
CPT/HCPCS: 36415; 36416; 51702; 71045; 80048; 80053; 80061; 80076; 81003; 81015; 82553; 82805; 83036; 83880; 84484; 85025; 85379; 85652; 86140; 93005; 94660; 96374; C9113; J0456; J1100; J1650; J2060; J2270; J3480; J3490; J7042; J7050; U0002

== ENCOUNTER 2021-09-07 11:37 | Inpatient (IN) | payer OTHER ==
[2021-09-07 11:42] VITALS: BP 161/79; TEMP 98
[2021-09-07 11:43] VITALS: BMI 22.8
[2021-09-07] MEDS ORDERED: Ondansetron PF 4 MG/2 ML Vial IVP PRN (13:00)
[2021-09-07] MEDS ORDERED: Scopolamine 1.5 mg/72 hour Patch TOP PRN (13:00)
[2021-09-07] MEDS ORDERED: Haloperidol Lactate 5 MG/ML VIAL SLOW IVP PRN (13:00)
[2021-09-07] MEDS ORDERED: chlorproMAZINE HCl 25 MG in Sodium Chloride 0.9% 50 ML IVPB PRN (13:00)
[2021-09-07] MEDS ORDERED: Morphine 2 MG/ML VIAL SLOW IVP PRN (13:04)
[2021-09-07] MEDS ORDERED: Lorazepam 2 MG/ML VIAL SLOW IVP PRN (13:07)
[2021-09-07] MEDS ORDERED: Bisacodyl 10 MG SUPP PR PRN (13:08)
[2021-09-07] MEDS ORDERED: Lorazepam 2 MG/ML VIAL SLOW IVP SCH (13:15)
[2021-09-07] MEDS: Morphine 4 MG/ML VIAL SLOW IVP SCH ×2 (13:16→15:09)
== END 2021-09-07 15:44 | disposition expired | DRG 951 ==
LOC: IMCU/EMU 11:37
PROVIDERS: ADMIT Family Medicine; ATTEND Family Medicine
DX: Z51.5 Encounter for palliative care (principal); U07.1 COVID-19; J12.82 Pneumonia due to coronavirus disease 2019; E46 Unspecified protein-calorie malnutrition; R64 Cachexia; Z66 Do not resuscitate; F17.210 Nicotine dependence, cigarettes, uncomplicated; E11.9 Type 2 diabetes mellitus without complications; K21.9 Gastro-esophageal reflux disease without esophagitis; J43.9 Emphysema, unspecified; R09.02 Hypoxemia; I10 Essential (primary) hypertension; R06.03 Acute respiratory distress; G47.00 Insomnia, unspecified; Z95.5 Presence of coronary angioplasty implant and graft; Z79.899 Other long term (current) drug therapy; Z86.73 Personal history of transient ischemic attack (TIA), and cerebral infarction without residual deficits; Z89.512 Acquired absence of left leg below knee; Z98.890 Other specified postprocedural states; Z79.82 Long term (current) use of aspirin; Z79.02 Long term (current) use of antithrombotics/antiplatelets; Z68.22 Body mass index [BMI] 22.0-22.9, adult
CPT/HCPCS: J2060; J2270